=== PATIENT | male | born 1995 | race African-American/Black ===

== ENCOUNTER 2019-07-26 16:00 | Emergency (ER) | payer OTHER ==
[~2019-07-26] VITALS: Ht 185.4 cm; Wt 107.7 kg
[2019-07-26] MEDS ORDERED: ZOFR4TAB16 PO (16:07)
[2019-07-26 16:50] LABS: INFLUENZA A AMPLIFICATION NEGATIVE (NEGATIVE); INFLUENZA B AMPLIFICATION NEGATIVE (NEGATIVE)
[2019-07-26] MEDS ORDERED: NS 1,000 ML IV ONE (19:00)
[2019-07-26] MEDS ORDERED: ONDANSETRON 4MG/2ML VIAL (J2405) IV ONE (19:00)
[2019-07-26 19:30] LABS: BASO % 0.1 % (0.0-1.0); EOS % 0.1 % (0.0-3.0); HEMATOCRIT 47.2 % (42.0-52.0); HEMOGLOBIN 15.2 g/dl (13.5-17.5); LYMPH # 0.6 10^3/uL (1.5-5.0); MEAN CORPUSCULAR HEMOGLOBIN 27.9 pg (27.0-33.0); MEAN CORPUSCULAR HGB CONC 32.2 g/dl (32.0-36.5); MEAN CORPUSCULAR VOLUME 86.6 fl (80.0-96.0); MONO # 0.3 10^3/uL (0.0-0.8); MONO % 4.3 % (0.0-5.0); NEUTROPHILS # 6.7 10^3/uL (1.5-8.5); NEUTROPHILS % 87.2 % (36.0-66.0); PLATELET COUNT, AUTOMATED 157 10^3/uL (150-450); RED BLOOD COUNT 5.45 10^6/uL (4.30-6.10); WHITE BLOOD COUNT 7.7 10^3/uL (4.0-10.0)
[2019-07-26 19:51] LABS: ALBUMIN 4.1 GM/DL (3.2-5.2); ALT/SGPT 33 U/L (12-78); BILIRUBIN,DIRECT 0.2 MG/DL (0.0-0.2); BILIRUBIN,TOTAL 0.9 MG/DL (0.2-1.0); LIPASE 51 U/L (73-393); TOTAL PROTEIN 7.6 GM/DL (6.4-8.2)
[2019-07-26 20:15] LABS: BLOOD UREA NITROGEN 13 MG/DL (7-18); CALCIUM LEVEL 8.6 MG/DL (8.5-10.1); CARBON DIOXIDE LEVEL 29 MEQ/L (21-32); CHLORIDE LEVEL 102 MEQ/L (98-107); CREATININE FOR GFR 1.14 MG/DL (0.70-1.30); GLOMERULAR FILTRATION RATE > 60.0 (>60); GLUCOSE, FASTING 98 MG/DL (70-100); POTASSIUM SERUM 3.9 MEQ/L (3.5-5.1); SODIUM LEVEL 138 MEQ/L (136-145)
[2019-07-26] MEDS ORDERED: ONDA4TAB6 PO (21:23)
[2019-07-26] MEDS ORDERED: ACETAMINOPHEN 500 MG TAB PO ONE (21:30)
[2019-07-26 21:40] VITALS: BP 132/73
== END 2019-07-26 21:43 | disposition home or self-care (01) ==
LOC: M ED 16:00
DX: R10.9 Unspecified abdominal pain (principal); R11.2 Nausea with vomiting, unspecified; R19.7 Diarrhea, unspecified; R51 Headache; F17.210 Nicotine dependence, cigarettes, uncomplicated
CPT/HCPCS: 36415; 80048; 80076; 81001; 83690; 85025; 87502; 96361; 96374; 99284; J2405

== ENCOUNTER 2019-10-13 13:54 | Emergency (ER) | payer OTHER ==
[~2019-10-13 13:54] MED LIST: ONDA4TAB6 PO; ZOFR4TAB16 PO
[2019-10-13 13:55] VITALS: BP 117/53
--- NOTE | 2019-10-13 14:28 | REP ---
Left ankle series: Four views. History: Left ankle pain. Findings: There is moderate anterolateral soft-tissue swelling. Ankle mortise is intact. No fractures seen. Impression: Anterolateral soft-tissue swelling. No fracture seen. Electronically Signed by Andi Calderón MD 10/13/2019 02:20 P
[2019-10-13] MEDS ORDERED: NAPROXEN 250 MG TAB PO ONE (14:30)
[2019-10-13] MEDS ORDERED: NAPR-837 PO (14:36)
== END 2019-10-13 14:46 | disposition home or self-care (01) ==
LOC: M ED 13:54
DX: S93.402A Sprain of unspecified ligament of left ankle, initial encounter (principal); W19.XXXA Unspecified fall, initial encounter; Y92.9 Unspecified place or not applicable; F17.210 Nicotine dependence, cigarettes, uncomplicated

== ENCOUNTER 2020-06-14 14:49 | Emergency (ER) | payer OTHER, SELFPAY ==
[~2020-06-14] VITALS: Ht 188 cm; Wt 112.2 kg
[~2020-06-14 14:49] MED LIST changes: +NAPR-837 PO
--- OUTSIDE RECORDS SUMMARY | 2020-06-14 15:00 | CCD ---
Author Author [facility] Address Unknown Phone Unavailable Support Name Relationship Address Phone UE Next Of Kin Unknown Unavailable [employer] Next Of Kin [address] [place] [address] Unavailable ELIZA MARR Next Of Kin Unknown Re-disclosure Warning The records that you are about to access may contain information from federally-assisted alcohol or drug abuse programs. If such information is present, then the following federally mandated warning applies: This information has been disclosed to you from records protected by federal confidentiality rules (42 CFR part 2). The federal rules prohibit you from making any further disclosure of this information unless further disclosure is expressly permitted by the written consent of the person to whom it pertains or as otherwise permitted by 42 CFR part 2. A general authorization for the release of medical or other information is NOT sufficient for this purpose. The Federal rules restrict any use of the information to criminally investigate or prosecute any alcohol or drug abuse patient.The records that you are about to access may contain highly sensitive health information, the redisclosure of which is protected by Article 27-F of the [facility] Public Health law. If you continue you may have access to information: Regarding HIV / AIDS; Provided by facilities licensed or operated by the [facility] Office of Mental Health; or Provided by the [facility] Office for People With Developmental Disabilities. If such information is present, then the following [facility] mandated warning applies: This information has been disclosed to you from confidential records which are protected by state law. State law prohibits you from making any further disclosure of this information without the specific written consent of the person to whom it pertains, or as otherwise permitted by law. Any unauthorized further disclosure in violation of state law may result in a fine or alf sentence or both. A general authorization for the release of medical or other information is NOT sufficient authorization for further disc losure. Encounters Encounter Providers Location Date Indications Data Source(s ) Outpatient 10/26/2019 06:08:00 AM EDT [facility] Insurance Providers Payer name Policy type / Coverage type Policy ID Covered alliance party ID Covered alliance party's relationship to chamorro Policy [place] Plan Information SELF PAY ONLY SP HUMANA [facility] REG O [id number] O [id number] [facility] ACTIVE DUTY [id number] SP [id number] [facility] - O/P [id number] 18 [id number]
[2020-06-14] MEDS ORDERED: DEBR6.5S4 OTIC (18:11)
--- OUTSIDE RECORDS SUMMARY | 2020-06-14 18:11 | CCD ---
Author Author [facility] Organization [facility] Address Unknown Phone Unavailable Support Name Relationship Address Phone [employer] Next Of Kin [address] [place], [place] [id number] UE Next Of Kin Unknown Unavailable [employer] Next Of Kin [address] [place] [address] Unavailable ELIZA MARR Next Of Kin Unknown [...] is protected by Article 27-F of the [facility] Public Health law. If you continue you may have access to information: Regarding HIV / AIDS; Provided by facilities licensed or operated by the [facility] Office of Mental Health; or Provided by the [facility] Office for People With Developmental Disabilities. If such information is present, then the following [facility] mandated warning applies: This information has been [...] law may result in a fine or snf sentence or both. A general authorization for the release of medical or other information is NOT sufficient authorization for further disc losure. Encounters Encounter Providers Location Date Indications Data Source(s ) Outpatient 10/26/2019 06:08:00 AM EDT [facility] Insurance Providers Payer name Policy type / Coverage type Policy ID Covered republican ID Covered republican's relationship to chamorro Policy [place] Plan Information 'S ADMINISTRATION [id number] SP [id number] SELF PAY ONLY SP HU[facility]NA [facility] REG O [id number] O [id number] [facility] ACTIVE DUTY [id number] SP [id number] [facility] - O/P [id number] 18 [id number]
[2020-06-14 18:19] VITALS: BP 125/65
== END 2020-06-14 18:28 | disposition home or self-care (01) ==
LOC: M ED 14:49
DX: H61.21 Impacted cerumen, right ear (principal)